=== PATIENT | female | born 1930 | race Caucasian/White ===

== ENCOUNTER 2016-12-25 04:44 | Emergency (ER) | payer MEDICARE ==
--- NOTE | ~2016-12-25 | EKG ---
PATIENT: REY BENAVIDEZ UNIT #: [id number] Ventricular Rate: 90 BPM Atrial Rate: 90 BPM P-R Interval: 174 ms QRS Duration: 78 ms Q-T Interval: 358 ms QTC Calculation(Bezet): 437 ms P [place]: 65 degrees Calculated R [place]: 17 degrees Calculated T [place]: 48 degrees Diagnosis Line: Normal sinus rhythm Diagnosis Line: Cannot rule out Septal infarct (cited on or before Diagnosis Line: 25-DEC-2016) Diagnosis Line: Borderline ECG Diagnosis Line: When compared with ECG of 04-AUG-2016 10:57, Diagnosis Line: No significant change was found Diagnosis Line: Confirmed by LAZ HDEZ MD ([id number]) on 12/26/2016 Diagnosis Line: 9:08:10 AM INTERPRETING MD: KETTY MERCADO
--- NOTE | ~2016-12-25 | CR72 ---
[facility] A Service of [facility] & [facility] RADIOLOGY TEXT RESULTS PATIENT: REY BENAVIDEZ LOCATION: SED : 32 UNIT #: [id number] AGE: [address]: Moreno Duvall DO SEX: F ORDER DR: [id number] [place] [address] [id number] E MR#: [id number] Acc #: [id number] NAME: REY BENAVIDEZ : 1930 SEX: F STUDY DATE/TIME: 12/25/2016 6:10 UNIT: SED ROOM: STUDY DESCRIPTION: CR Chest Single View Portable Attending Physician: Moreno Duvall Ordering Physician: Physician Non-Staff Primary Care Physician: Denilson Verde D.O. MEDICAL IMAGING REPORT This report is preliminary unless electronic signature is present. EXAM Portable chest one-view, 12/25/2016 at 06:10 COMPARISON 12/25/2016 at 04:01 CLINICAL HISTORY Nasogastric tube placement FINDINGS Nasogastric tube has been inserted since the prior exam. Distal tip is in at least the mid stomach. No pneumothorax. No pulmonary infiltrate. No new abnormality. Dictated by... Henrry Turner M.D. THIS IS AN ELECTRONICALLY VERIFIED REPORT Henrry Turner M.D. at 12/25/2016 12:09 PM PEREZ/víctor TD: 12/25/2016 11:38 JOB #: [id number] MEDICAL IMAGING REPORT
--- NOTE | ~2016-12-25 | CR72 ---
[facility]. [facility] A Service of [facility] & [facility] RADIOLOGY TEXT RESULTS PATIENT: REY BENAVIDEZ LOCATION: SED : 32 UNIT #: [id number] AGE: [address]: Moreno Duvall DO SEX: F ORDER DR: [id number] [place] [address] [id number] E MR#: [id number] Acc #: [id number] NAME: REY BENAVIDEZ : 1930 SEX: F STUDY DATE/TIME: 12/25/2016 4:01 UNIT: SED ROOM: STUDY DESCRIPTION: CR Chest Single View Portable Attending Physician: Moreno Duvall Ordering Physician: Physician Non-Staff Primary Care Physician: Denilson Verde D.O. MEDICAL IMAGING REPORT This report is preliminary unless electronic signature is present. EXAM Portable chest, 12/25. INDICATION Heart palpitations that started prior to arrival. History of hypertension. FINDINGS AP portable chest is compared with 08/04/2016. Cardiac and mediastinal contours are stable. There is some chronic scarring in the right base. Lungs otherwise are clear. No pneumothorax is seen. There is atherosclerotic disease in the aorta. IMPRESSION No acute findings in the chest. There is some mild chronic scarring in the right lung base. Dictated by... Denilson Enriquez Jr., M.D. THIS IS AN ELECTRONICALLY VERIFIED REPORT Denilson Enriquez Jr., M.D. at 12/25/2016 2:26 PM EVGENY/huy TD: 12/25/2016 11:23 JOB #: [id number] MEDICAL IMAGING REPORT
--- NOTE | ~2016-12-25 | CT4 ---
[facility] A Service of [facility] & [facility] RADIOLOGY TEXT RESULTS PATIENT: REY BENAVIDEZ LOCATION: SED : 32 UNIT #: [id number] AGE: [address]: Moreno Duvall DO SEX: F ORDER DR: [id number] [place] [address] [id number] E MR#: [id number] Acc #: [id number] NAME: REY BENAVIDEZ : 1930 SEX: F STUDY DATE/TIME: 12/25/2016 4:59 UNIT: SED ROOM: STUDY DESCRIPTION: CT Abd and Pelv Wo Cont Attending Physician: Moreno Duvall Ordering Physician: Physician Non-Staff Primary Care Physician: Denilson Verde D.O. MEDICAL IMAGING REPORT This report is preliminary unless electronic signature is present. EXAM CT abdomen and pelvis, 12/25. INDICATIONS Generalized abdominal pain and vomiting since yesterday. Elevated white blood cell count. TECHNIQUE Axial images were obtained through the abdomen and pelvis without contrast. Multiplanar reformats were obtained. This CT exam was performed with one or more of the following radiation dose reduction techniques: automatic exposure control, adjustment of mA and/or kV according to patient size, and iterative reconstruction. COMPARISON Comparison is made with 10/02/2016. FINDINGS ABDOMEN: Granulomatous calcification noted, right middle lobe. Lung bases otherwise clear. Intra and extrahepatic biliary ductal dilatation is stable. The common duct measures up to 2.1 cm in diameter. Once again, no obstructing lesion is seen. 5 mm nonobstructing stone noted, lower pole left kidney. This is unchanged. Renal cysts are unchanged allowing for the lack of IV contrast on the current study. No ureteral stones are identified on either side and there is no hydronephrosis. The unenhanced solid organs are otherwise within normal limits. There is atherosclerotic disease in the aorta, but there is no aneurysm. Moderate stool in the colon suggests constipation. Unopacified GI tract is otherwise normal. No bowel obstruction is seen. No free fluid. Patient is status post mesh repair of the right lower quadrant ventral abdominal wall. PELVIS: Moderate stool volume in the colon is [facility] Service of [facility] & [facility] RADIOLOGY TEXT RESULTS PATIENT: REY BENAVIDEZ LOCATION: SED : 32 UNIT #: [id number] AGE: [address]: Moreno Duvall DO SEX: F ORDER DR: andrez. Uterus is surgically absent. Urinary bladder is normal. There is no free fluid. There are mildly dilated fluid-filled distal small bowel loops suggesting an ileus or developing small bowel obstruction. No cause for obstruction is identified. IMPRESSION 1. Moderate stool volume throughout the colon compatible with constipation. 2. Dilated fluid-filled small bowel loops in the pelvis are otherwise normal in appearance. No obstructing lesion is seen, but this could reflect a developing small bowel obstruction or simply an ileus. Proximal small bowel is normal. 3. Stable intra and extrahepatic biliary ductal dilatation. 4. Stable nonobstructing stone in the right kidney. No ureteral stones are seen on either side and there is no hydronephrosis. 5. Hysterectomy and cholecystectomy. Dictated by... Denilson Enriquez Jr., M.D. THIS IS AN ELECTRONICALLY VERIFIED REPORT Denilson Enriquez Jr., M.D. at 12/25/2016 2:26 PM EVGENY/aime TD: 12/25/2016 11:28 JOB #: [id number] MEDICAL IMAGING REPORT
[2016-12-25 04:04] LABS: BASOPHIL# 0.1 X10e3 (0.0-0.3); BASOPHIL% 0.4 % (0.0-2.5); DIFF IND NO; EOSINOPHIL# 0.1 X10e3 (0.0-0.7); EOSINOPHIL% 0.7 % (0.0-7.0); HEMATOCRIT 34.3 % (35.0-45.0); HEMOGLOBIN 11.7 gm/dl (12.0-16.0); LYMPHOCYTE# 1.6 X10e3 (1.0-3.5); MEAN CELL VOLUME 93.4 FL (83-96); MEAN CORPUSCULAR HEMOGLOBIN 31.8 PG (28-34); MEAN CORPUSCULAR HGB CONC 34.1 g/dL (30-36); MEAN PLATELET VOLUME 8.5 FL (6.5-11.5); MONOCYTE# 0.9 X10e3 (0.0-1.0); MONOCYTE% 7.3 % (3.0-12.0); NEUTROPHIL% 78.6 % (40.0-75.0); PLATELET COUNT 209 X10e3 (140-420); RED BLOOD COUNT 3.67 X10e6 (3.90-5.30); RED CELL DISTRIBUTION WIDTH 13.3 % (11.0-15.5); WHITE BLOOD COUNT 12.7 X10e3 (4.0-10.5)
[2016-12-25 04:07] LABS: INR 1.5; PROTHROMBIN TIME (PATIENT) 16.8 SECONDS (9.5-12.4)
[2016-12-25 04:15] LABS: BLOOD UREA NITROGEN 14 mg/dL (9-23); CALCIUM SERUM 9.4 mg/dL (8.4-10.2); CARBON DIOXIDE 29 mmol/L (22-31); CHLORIDE 90 mmol/L (100-111); CREATININE SERUM 0.7 mg/dL (0.6-1.4); GLOM FILT RATE Estimated ABOVE60 mL/min (>60); GLUCOSE FASTING 125 mg/dL (70-110); PARTIAL THROMBOPLASTIN TIME 26.9 SECONDS (25.6-38.1); POTASSIUM 3.6 mmol/L (3.5-5.1); SODIUM 129 mmol/L (135-145)
[2016-12-25 04:34] LABS: URINE SOURCE CLEAN CATCH
[2016-12-25 04:36] LABS: URINE APPEARANCE CLEAR; URINE BILIRUBIN NEG (NEG); URINE BLOOD 1+ (NEG); URINE COLOR YELLOW; URINE GLUCOSE NEG (NORM); URINE KETONE NEG (NEG); URINE LEUKOCYTE ESTERASE NEG (NEG); URINE NITRATE NEG (NEG); URINE PH 7.5 (5-8); URINE PROTEIN NEG (NEG); URINE UROBILINOGEN 0.2 MG/DL (NORM)
[2016-12-25 04:41] LABS: MICRO INDICATED? YES
[2016-12-25 04:44] LABS: CULTURE INDICATED? NO; URINE BACTERIA NEG (NEG); URINE SQUAMOUS EPITHELIAL CELL OCCAS /[HPF]; URINE TRANSITIONAL EPI CELLS FEW /[HPF]; URINE WBC 0-2 /[HPF] (0-5)
[~2016-12-25 04:44] MED LIST: ALPRAZOLAM; ALPRAZOLAM PO; AMLODIPINE PO; AMOXICILLIN; ANTIVERT PO; ASPIRIN81 M2 PO; AUGMENTIN PO; BACTRIM DS TABL1 TA1 PO; BACTRIM DS TABL1 TA2 PO; BROMFED DM COU118 ML PO; CIPRO PO; CIPRO XR 500 M500 MG PO; CYMBALTA; DELSYM30 MG/5 ML PO; DELTASONE20 MG PO; DIFLUCAN PO; ESTRACE42.5 GM VG; FLONASE 0.05% N16 GM; FLONASE16 GM; HYDROCODON-ACE1 EAC5 PO; HYDROCODON-ACE1 EAC7 PO; HYDROCODONE; HYDROCODONE-APA1 T41 PO; IPRATROPIUM; MECLIZINE HCL25 M2 PO; MOTION RELIEF25 MG PO; MOTION SICKNESS25 M5 PO; NEXIUM; NITROSTAT0.4 MG SL; OMNICEF PO; ONDANSETRON4 MG/TAB PO; PERCOCET7.5; PHENERGAN; PHENERGAN25 M1; PHENERGAN25 M1 PR; PREDNISONE PO; PRILOSEC10 M1 PO; PROLIA60 MG/1 ML; PYRIDIUM PO; PYRIDIUM100 MG PO; SIMVASTATIN10 MG PO; SYMBICORT INH; SYMBICORT80 INH; TOPROL; TOPROL XL; TOPROL XL 50 MG50 M1 PO; TOPROL XL 50 MG50 MG PO; TOPROL XL PO; TOPROL XL50 MG PO; VICODIN PO; VITAMIN D2400 UNIT PO; XANAX0.5 M1 PO; ZOCOR; ZOFRAN ODT4 MG PO; ZOFRAN ODT4 MG/UDTAB PO
[2016-12-25 05:44] LABS: POC - CKMB 1.3 ng/mL (0.0-7.9); POC - MYOGLOBIN 47.1 ng/mL (0.0-169.0); POC - TROPONIN <0.05 ng/mL (<=0.05)
[2016-12-27 14:38] LABS: POC - CKMB 1.2 ng/mL (0.0-7.9)
[2016-12-27 14:39] LABS: POC - MYOGLOBIN 55.3 ng/mL (0.0-169.0); POC - TROPONIN <0.05 ng/mL (<=0.05)
== END 2016-12-25 09:09 ==
LOC: SED 04:44
PROVIDERS: Emergency Medicine
DX: K56.60 Unspecified intestinal obstruction (principal); R00.2 Palpitations; I10 Essential (primary) hypertension; Z90.49 Acquired absence of other specified parts of digestive tract; Z90.710 Acquired absence of both cervix and uterus
CPT/HCPCS: 36415; 71010; 74176; 80048; 81003; 82553; 83874; 84484; 85025; 85610; 85730; 93005; 96361; 96374; 96375; 99284; 99285; J1170; J2405

== ENCOUNTER 2017-03-16 21:13 | Emergency (ER) | payer MEDICARE ==
--- NOTE | ~2017-03-16 | CT4 ---
[facility] A Service of [facility] & [facility] RADIOLOGY TEXT RESULTS PATIENT: REY BENAVIDEZ LOCATION: SED : 32 UNIT #: [id number] AGE: [address]: Irineo Drake SEX: F ORDER DR: [id number] [place] [id number] E MR#: [id number] Acc #: [id number] NAME: REY BENAVIDEZ : 1930 SEX: F STUDY DATE/TIME: 03/16/2017 22:32 UNIT: SED ROOM: STUDY DESCRIPTION: CT Abd and Pelv Wo Cont Attending Physician: Irineo Drake P.A.-C. Ordering Physician: Irineo Drake P.A.-C. Primary Care Physician: Denilson Verde D.O. MEDICAL IMAGING REPORT This report is preliminary unless electronic signature is present. EXAM CT abdomen and pelvis 03/16/2017 22:32 INDICATION Patient fell while walking on uneven ground yesterday. Patient has abrasions. Abdominal and hip pain. Right lower quadrant pain. Pain rates 8/10. TECHNIQUE Axial images were obtained through the abdomen and pelvis without contrast. Multiplanar reformats were obtained. Comparison is made with 12/25/2016. This CT examination was performed with one or more of the following radiation dose reduction techniques: automatic exposure control, adjustment of mA and/or kV according to patient size, and iterative reconstruction. FINDINGS ABDOMEN: Calcified granuloma is noted in the right middle lobe. There is mild band-like scarring in both lung bases. Gallbladder surgically absent. There is persistent intra- and extrahepatic biliary ductal dilatation which appears stable. Common bile duct measures about 2 cm in diameter. Once again, no obstructing lesion is seen. The pancreatic duct is normal. Nonobstructing stone lower pole right kidney is unchanged. Right renal cyst is again seen. There are no ureteral stones, there is no hydronephrosis. Unenhanced solid organs are otherwise normal. There is also probably a tiny cyst in the lower pole of the left kidney. There is diffuse atherosclerotic disease. No free fluid or adenopathy is seen. Moderate stool volume in the colon again suggests constipation. There is no bowel obstruction. PELVIS: Patient is status post repair of the right lower quadrant abdominal wall. There is sigmoid diverticulosis, but no diverticulitis is seen. The distal small bowel is grossly normal. The urinary bladder is STS. [facility] A Service of [facility] RADIOLOGY TEXT RESULTS PATIENT: REY BENAVIDEZ LOCATION: SED : 32 UNIT #: [id number] AGE: [address]: Irineo Drake PAC SEX: F ORDER DR: normal. The uterus is surgically absent. There is no free fluid. No fractures are seen in the abdomen, pelvis, or lumbar spine. 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 IMPRESSION 1. No acute findings in the abdomen or pelvis. 2. Probable constipation. Sigmoid diverticulosis. Unopacified GI tract otherwise normal. 3. Stable intra- and extrahepatic biliary ductal dilatation. No pancreatic ductal dilatation is seen. 4. Nonobstructing stone right kidney, unchanged. No ureteral stones, and no hydronephrosis. 5. No fractures are seen in the abdomen, pelvis, or lumbar spine. 6. Hysterectomy and cholecystectomy. Dictated by... Denilson Enriquez Jr., M.D. THIS IS AN ELECTRONICALLY VERIFIED REPORT Denilson Enriquez Jr., M.D. at 03/17/2017 9:22 PM EVGENY/jameel TD: 03/17/2017 15:01 JOB #: [id number] MEDICAL IMAGING REPORT Page 1 of 1
[2017-03-16 22:25] LABS: BASOPHIL% 0.6 % (0-2.5); EOSINOPHIL# 0.2 X10e3 (0-0.7); EOSINOPHIL% 3.7 % (0.0-7.0); HEMATOCRIT 34.5 % (35.0-45.0); HEMOGLOBIN 11.4 gm/dL (12.0-16.0); LYMPHOCYTE% 35.7 % (17.0-45.0); MEAN CELL VOLUME 95.5 FL (83-96); MEAN CORPUSCULAR HEMOGLOBIN 31.5 PG (28-34); MEAN PLATELET VOLUME 9.2 FL (6.5-11.5); MONOCYTE# 0.5 X10e3 (0-1.0); PLATELET COUNT 154 X10e3 (140-420); RED BLOOD COUNT 3.61 X10e (3.90-5.30); WHITE BLOOD COUNT 5.7 X10e3 (4.0-10.5)
[2017-03-16 22:35] LABS: DIFF IND NO
[2017-03-16 22:37] LABS: ALBUMIN SERUM 4.2 g/dL (3.5-5.0); BILIRUBIN, DIRECT 0.1 mg/dL (0.0-0.2); BILIRUBIN,TOTAL 0.1 mg/dL (0.2-2.0); BUN/CREATININE RATIO 23.75; CALCIUM SERUM 9.1 mg/dL (8.4-10.2); CREATININE SERUM 0.8 mg/dL (0.6-1.4); GLOM FILT RATE Estimated 67.3 mL/min (>60); POTASSIUM 3.9 mmol/L (3.5-5.1); PROTEIN TOTAL SERUM 7.1 g/dL (6.0-8.3)
[2017-03-16 23:40] LABS: URINE SOURCE CLEAN CATCH
[2017-03-16 23:43] LABS: URINE APPEARANCE CLEAR; URINE BILIRUBIN NEG (NEG); URINE BLOOD NEG (NEG); URINE COLOR YELLOW; URINE GLUCOSE NEG (NORM); URINE KETONE NEG (NEG); URINE LEUKOCYTE ESTERASE NEG (NEG); URINE NITRATE NEG (NEG); URINE PROTEIN NEG (NEG); URINE UROBILINOGEN 0.2 MG/DL (NORM)
[2017-03-16 23:46] LABS: MICRO INDICATED? NO
[2017-07-29] MEDS ORDERED: MAGNESIUM400 M1 (05:58)
[2017-07-29] MEDS ORDERED: MIRALAX17 GM (05:59)
== END 2017-03-17 00:09 | disposition home or self-care (01) ==
LOC: SED 21:13
PROVIDERS: Physician Assistant
DX: S51.812A Laceration without foreign body of left forearm, initial encounter (principal); S70.01XA Contusion of right hip, initial encounter; S30.1XXA Contusion of abdominal wall, initial encounter; I10 Essential (primary) hypertension; F41.9 Anxiety disorder, unspecified; W01.0XXA Fall on same level from slipping, tripping and stumbling without subsequent striking against object, initial encounter; Y92.009 Unspecified place in unspecified non-institutional (private) residence as the place of occurrence of the external cause
CPT/HCPCS: 36415; 74176; 80048; 80076; 81003; 85025; 96361; 96374; 96375; 99284; J1170; J2405

== ENCOUNTER 2017-03-31 07:40 | Observation (INO) | payer MEDICARE ==
--- NOTE | ~2017-03-31 | EKG ---
PATIENT: REY BENAVIDEZ UNIT #: [id number] Ventricular Rate: 84 BPM Atrial Rate: 84 BPM P-R Interval: 160 ms QRS Duration: 82 ms Q-T Interval: 370 ms QTC Calculation(Bezet): 437 ms P [place]: 66 degrees Calculated R [place]: 38 degrees Calculated T [place]: 12 degrees Diagnosis Line: Normal sinus rhythm Diagnosis Line: Normal ECG Diagnosis Line: When compared with ECG of 25-DEC-2016 03:43, Diagnosis Line: No significant change was found Diagnosis Line: Confirmed by OFELIA VALENZUELA MD ([id number]) on Diagnosis Line: 04/02/2017 5:22:09 PM INTERPRETING : HOMAR
--- NOTE | ~2017-03-31 | EKG ---
PATIENT: REY BENAVIDEZ UNIT #: [id number] Ventricular Rate: 78 BPM Atrial Rate: 78 BPM P-R Interval: 168 ms QRS Duration: 80 ms Q-T Interval: 364 ms QTC Calculation(Bezet): 414 ms P [place]: 66 degrees Calculated R [place]: 45 degrees Calculated T [place]: 49 degrees Diagnosis Line: Normal sinus rhythm Diagnosis Line: Normal ECG Diagnosis Line: When compared with ECG of 25-DEC-2016 03:43, Diagnosis Line: Criteria for Septal infarct are no longer Present Diagnosis Line: Confirmed by OFELIA VALENZUELA MD ([id number]) on Diagnosis Line: 04/07/2017 10:26:36 PM INTERPRETING MD: HOMAR
--- NOTE | ~2017-03-31 | ST ---
Unit #: [id number] #: [id number] Patient: REY BENAVIDEZ [id number] [facility] [address] [place], [place] [address] [id number] I MR#: [id number] NAME: REY BENAVIDEZ : 1930 SEX: F STUDY DATE/TIME: UNIT: [facility] ROOM: 575 STUDY DESCRIPTION: Stress Test Attending Physician: Brenda Winkler M.D. Primary Care Physician: Denilson Verde D.O. CARDIOLOGY REPORT EXAM Lexiscan Cardiolite Stress Test DESCRIPTION Baseline EKG - normal sinus rhythm with ventricular rate 88 beats/minute, Q wave noted in V1, poor R wave progression. Nonspecific ST-T wave abnormalities in inferior leads. Lexiscan is a four minute test with Lexiscan being injected within the first minute followed by Cardiolite. EKG during the test showed 1.[address] depression in inferior lateral leads. The patient had no complaints of chest pain, palpitations or dizziness. She did have some nausea and dry heaving in post recovery which resolved within a couple minutes. Her maximum heart rate response was 141 beats/minute with a maximum blood pressure response of 138/58 mmHg. The patient had no complaints of chest pain, palpitations or dizziness. As mentioned, did complain of nausea and had some dry heaving. Cardiolite was injected after Lexiscan within the first minute of the test. Radionuclide test pending. Please correlate with nuclear images. Dictated by... Demarco Jerry/lyndsey TD: 04/01/2017 13:01 JOB #: [id number] Unit #: [id number] #: [id number] Patient: REY BENAVIDEZ CARDIOLOGY REPORT Page 1 of 1 X Ava Sutherland APRN CARDIOLOGY REPORT
--- NOTE | ~2017-03-31 | CR72 ---
[facility] A Service of [facility] RADIOLOGY TEXT RESULTS PATIENT: REY BENAVIDEZ LOCATION: [facility] [address] : 32 UNIT #: [id number] AGE: [address]: Brenda Winkler MD SEX: F ORDER DR: [id number] [address] [address] [id number] E MR#: [id number] Acc #: [id number] NAME: REY BENAVIDEZ : 1930 SEX: F STUDY DATE/TIME: 03/31/2017 7:55 UNIT: SED ROOM: STUDY DESCRIPTION: CR Chest Single View Portable Attending Physician: Gerri Mathis M.D. Ordering Physician: Gerri Mathis M.D. Primary Care Physician: Denilson Verde D.O. MEDICAL IMAGING REPORT This report is preliminary unless electronic signature is present. EXAM Portable AP view of the chest COMPARISON December 25, 2016 and August 04, 2016. INDICATION 87-year-old female with dyspnea and chest pain since last night. History of hypertension and asthma. FINDINGS There are prominent breast shadows over both lung bases. There appear to be increased band-like opacities in the right lung base and there is also a calcified granuloma in the right lung base. Small left pleural effusion. Associated atelectasis or pneumonia cannot entirely be excluded. No evidence of pneumothorax. Normal heart size. Calcification of the aortic arch. IMPRESSION 1. Increased band-like opacities in the right lung base would seem to favor atelectasis. Correlation to exclude signs of pneumonia recommended. 2. Similar appearing hazy attenuation over left lower chest favored to be due to prominent cardiac and breast shadows but left basilar atelectasis, pneumonia and/or pleural effusion cannot entirely be excluded. 3. Normal heart size. 1. Dictated by... Justin Gillette M.D. THIS IS AN ELECTRONICALLY VERIFIED REPORT [facility] A Service of [facility] & [facility] RADIOLOGY TEXT RESULTS PATIENT: REY BENAVIDEZ LOCATION: [facility] 575 : 32 UNIT #: [id number] AGE: [address]: Brenda Winkler MD SEX: F ORDER DR: Justin Gillette M.D. at 04/07/2017 7:34 PM CECILIA/víctor TD: 03/31/2017 09:28 JOB #: [id number] MEDICAL IMAGING REPORT Page 1 of 1
--- NOTE | ~2017-03-31 | TH ---
Unit #: [id number] #: [id number] Patient: REY BENAVIDEZ [id number] [facility]. [address] [address] [id number] I MR#: [id number] NAME: REY BENAVIDEZ : 1930 SEX: F STUDY DATE/TIME: UNIT: [facility] ROOM: 575 STUDY DESCRIPTION: Nuclear Study Attending Physician: Brenda Winkler M.D. Primary Care Physician: Denilson Verde D.O. CARDIOLOGY REPORT EXAM Lexiscan Cardiolite Stress Test - Nuclear Portion PROCEDURE Using technetium 99m labeled Cardiolite, rest and stress SPECT images were obtained. Multiple SPECT images were obtained in various views including horizontal and vertical long axis and short axis views of the left ventricle. Images were obtained by gated SPECT method. The patient was administered 11.50 mCi of Cardiolite at rest. The patient was administered 35.9 mCi of Cardiolite after Lexiscan infusion was completed. On the stress images, there is normal perfusion noted. The rest images show normal perfusion. Comparing rest and stress images, there is no stress-induced ischemia noted. The left ventricular ejection fraction is calculated to be 87%. There is no focal wall motion abnormality seen. CONCLUSION 1. No stress-induced ischemia noted. 2. The left ventricular ejection fraction is calculated to be 87%. 3. There is no focal wall motion abnormality seen. 4. The left ventricular size is extremely small. 5. Normal nuclear portion of the stress test. 6. It must be noted that the patient had some ST depression during the Lexiscan portion of the stress test. Clinical correlation is requested. Dictated by... Selvin Parker TD: 04/01/2017 14:14 JOB #: [id number] Unit #: [id number] #: [id number] Patient: REY BENAVIDEZ CARDIOLOGY REPORT Page 1 of 1 X Brenda Winkler MD <ELECTRONICALLY SIGNED> 05/25/17 1429 CARDIOLOGY REPORT
--- NOTE | ~2017-03-31 | HP ---
Unit #: [id number] #: [id number] Patient: REY DAILEY [id number] [facility]. [place] [id number] [facility]. [place], [place] [address] [id number] I MR#: [id number] NAME: REY DAILEY ROOM: 575 Age: 87 Sex: F Admission Date: 03/31/2017 : 1930 Attending Physician: Brenda Winkler M.D. Primary Care Physician: Denilson Verde D.O. HISTORY AND PHYSICAL HISTORY OF PRESENT ILLNESS This is an 87-year-old white female who is active with Dr. Rodgers at [facility]. The patient reports that she has a history of mitral valve prolapse and sees him for blood pressure management. She reports that she had a stress test a couple of years ago that she thought was normal. She was also told that she has mitral valve prolapse. The patient had been at [facility] for about a month ago. She was there for some type of MRSA infection. Details are unavailable. She was not sure that it was not of the wound. She went to rehab after being at [facility] for two weeks. She has been out of rehab for about a month. She said since she has been home she has been doing fairly well. She can ambulate without a walker or cane. She started having yesterday some weakness and some midsternal chest discomfort radiating over to the left area. She says that it was constant for a few hours. She denies any dizziness or diaphoresis. She did feel a little short of breath. No palpitations. No radiation up to the neck, bilateral jaws, shoulders, arms or elbows. She did complain of some left shoulder pressure when she had the pain in her midsternal left anterior chest wall. The patient checks her blood pressure frequently at home. She said that her heart rate got up to 140. She was concerned that something was going on so she came to the emergency room for further evaluation and management. The patient denies any recent cough, fever or chills. In the emergency room the patient's blood pressure was 157/70, heart rate 68, respiratory rate 18, she was afebrile. O2 saturation was 96% on room air. Her EKG showed normal sinus rhythm, nothing acute. Some T wave inversion in lead 3. Initial cardiac enzymes are negative. Chest x-ray showed an increased band of opacities in the right lung. Questionable atelectasis. Also the left lower lobe had some atelectasis. The patient was given aspirin in addition to being started on nitroglycerin paste and IV Protonix. The patient did mention also that she had taken some Nitrostat at home without any relief. The patient will be admitted for further evaluation and workup. PAST MEDICAL HISTORY 1. Hypertension. 2. Hyperlipidemia. 3. Gastroesophageal reflux disease. 4. Chronic obstructive pulmonary disease. 5. Reformed smoker. Quit over 40 years ago. 6. Cardiac catheterization years ago according to the patient was told was normal. Details unavailable. 7. In 2003 had exercise Cardiolite stress test with no ischemia. Ejection fraction 72%. Unit #: [id number] #: [id number] Patient: REY DAILEY 8. Followup with Dr. Rodgers for reported mitral valve prolapse and blood pressure control. 9. Recent hospitalization at [facility] for MRSA infection. Questionable source. Went to rehab and discharged from rehab about a month ago. 10. Stress test about three years ago. According to the patient she was told it was normal. PAST SURGICAL HISTORY 1. Cholecystectomy. 2. Hysterectomy. 3. Upper GI. SOCIAL HISTORY The patient lives at home with her . Her is currently in the hospital here at [facility]. She used to smoke, but quit over 40 years ago. No alcohol or illicit drug abuse. FAMILY HISTORY Both of her parents had congestive heart failure, but other than that no coronary artery disease in the immediate family members. ALLERGIES Morphine, codeine, oxycodone, tetracycline, Stadol. HOME MEDICATIONS 1. Toprol XL 50 mg p.o. daily. Will confirm that with her pharmacy. 2. Xanax 0.5 mg p.o. daily p.r.n. 3. Symbicort 2 puffs inhalation b.i.d. p.r.n. 4. Ipratropium as directed. 5. Meclizine 25 mg p.o. p.r.n. 6. Nitrostat 0.4 mg sublingual p.r.n. times 3. 7. Vicodin/Lortab dosage unavailable. One tablet p.o. q.4 h. p.r.n. 8. Simvastatin 10 mg p.o. at nighttime daily. 9. Diltiazem 5 ml p.o. q.12 h. p.r.n. 10. Aspirin 81 mg p.o. daily. 11. Colace 100 mg p.o. b.i.d. p.r.n. 12. Milk of Magnesia 10 ml p.o. daily. 13. Amlodipine dosage and frequency unavailable, 1 tablet daily. 14. Flonase 1 puff each nostril daily. 15. Remeron 30 mg p.o. at bedtime. 16. Patanol 1 drop each eye b.i.d. 17. Zofran 4 mg p.o. t.i.d. p.r.n. 18. Protonix 40 mg p.o. daily. REVIEW OF SYSTEMS CONSTITUTIONAL: Denies fever or chills. No recent weight gain or weight loss. HEENT: Denies headache. Denies dizziness. No visual or hearing changes. No lymphadenopathy or thyromegaly. No difficulty swallowing. CARDIOVASCULAR: Complains of chest pain. Denies palpitations. Denies increased lower extremity edema. PULMONARY: Increased shortness of breath with the chest discomfort. Denies cough. Denies fever. GI: Denies nausea, vomiting, diarrhea or abdominal pain. NEUROLOGICAL: No focal weakness. Very hard of hearing. PHYSICAL EXAMINATION Unit #: [id number] #: [id number] Patient: REY DAILEY GENERAL: Ms. Dailey is an 87-year-old white female in no acute respiratory distress. She is awake, alert and oriented. VITALS: Currently blood pressure is 136/64, respiratory rate 18, heart rate 95, temperature 97.8, O2 saturations 99% on 2 liters. NECK: Trachea midline. No lymphadenopathy. Thyromegaly. No difficulty swallowing. LUNGS: Diminished in the bases. HEART: S1 and S2. Regular rate and rhythm. Soft systolic murmur left sternal border. ABDOMEN: Obese, soft, nontender. Positive bowel sounds present. EXTREMITIES: Pedal pulses are palpable. Trace pedal edema. DIAGNOSTIC STUDIES IMAGING: Chest x-ray shows increased band-like opacities in the right lung base, which seems to favor atelectasis. Cannot exclude maybe pneumonia. Similar attenuation over the left lower chest, but could consider left basilar atelectasis. LABORATORY: Glucose 106, BUN 16, creatinine 0.8. EGFR 67.3. Sodium 134, potassium 3.8, chloride 100, CO2 26, calcium 9.1, magnesium 2.3, total protein 7.3, albumin 4.3, bilirubin total 0.2, AST 36, ALT 13, alkaline phosphatase 92. BNP 126. TSH 1.14. White blood cell count 6.4, hemoglobin 11.0, hematocrit 32.9, platelets 168. Initial cardiac enzymes, CK-MB less than 1.0, troponin less than 0.05; CK-MB less than 1.0, troponin less than 0.05. Urinalysis unremarkable. No cultures are pending. INR 1.4. D-dimer less than 200. CARDIOVASCULAR: EKG normal sinus rhythm with ventricular rate 84 beats per minute, T wave noted in V1, poor R wave progression, left ventricular hypertrophy, T wave inversion in lead 3 also Q waves noted in lead 3. ASSESSMENT 1. Chest pain. Etiology. Reports had a normal cath years ago. Details unavailable. Stress test 2-3 years ago was told normal according to the patient. 2. Hypertension. 3. Hyperlipidemia. 4. Gastroesophageal reflux disease. 5. Reformed smoker. 6. Chronic obstructive pulmonary disease. 7. Recent hospitalization for MRSA infection. Questionable source. PLAN 1. We admitted the patient to evaluate her chest pain. Cardiac enzymes are negative so far. EKG does not show anything acute. If the cardiac enzymes remain negative, will proceed with a Lexiscan Cardiolite stress test to further evaluate for ischemic heart disease. In the meantime, will try to obtain records from Dr. Rodgers at [facility] and also her latest H and P and discharge summary. Also try to find two-dimensional echo. 2. On exam there are no signs or symptoms of acute congestive heart failure. Obtain fasting lipid profile and TSH and evaluate. 3. Continue the patient on her beta july, statin, aspirin and her amlodipine for blood pressure. 4. The patient's heart rate and blood pressure are stable. 5. Further recommendations pending per Dr. Winkler. Unit #: [id number] #: [id number] Patient: REY DAILEY Dictated by Ava E. Sutherland, A.P.R.Chelsea Winkler M.D. CEC/gz TD: 04/01/2017 12:33 JOB #: [id number] CC: Denilson Verde D.O. [facility] HISTORY AND PHYSICAL Page 1 of 1 X Ava Sutherland APRN X HISTORY AND PHYSICAL
[2017-03-31 08:10] LABS: BASOPHIL% 0.6 % (0-2.5); EOSINOPHIL# 0.1 X10e3 (0-0.7); EOSINOPHIL% 1.7 % (0.0-7.0); HEMATOCRIT 32.9 % (35.0-45.0); LYMPHOCYTE# 2.5 X10e3 (1.0-3.5); LYMPHOCYTE% 39.2 % (17.0-45.0); MEAN CELL VOLUME 94.5 FL (83-96); MEAN CORPUSCULAR HEMOGLOBIN 31.5 PG (28-34); MEAN CORPUSCULAR HGB CONC 33.3 g/dL (30-36); MEAN PLATELET VOLUME 9.1 FL (6.5-11.5); MONOCYTE# 0.5 X10e3 (0-1.0); MONOCYTE% 7.3 % (3.0-12.0); NEUTROPHIL# 3.3 X10e3 (1.5-7.1); NEUTROPHIL% 51.2 % (40-75); PLATELET COUNT 168 X10e3 (140-420); RED BLOOD COUNT 3.48 X10e (3.90-5.30); WHITE BLOOD COUNT 6.4 X10e3 (4.0-10.5)
[2017-03-31 08:16] LABS: POC - CKMB <1.0 ng/mL (0.0-7.9); POC - TROPONIN <0.05 ng/mL (<=0.05)
[2017-03-31] MEDS ORDERED: DOCUSATE SODIU100 MG PO (08:17)
[2017-03-31] MEDS ORDERED: ASPIRIN81 MG PO (08:17)
[2017-03-31] MEDS ORDERED: MILK OF MA2400 MG/10 PO (08:18)
[2017-03-31 08:20] LABS: DIFF IND NO
[2017-03-31] MEDS ORDERED: AMLODIPINE BESYL5 MG (08:24)
[2017-03-31] MEDS ORDERED: FLONASE 0.05% N16 G1 (08:24)
[2017-03-31 08:25] LABS: INR 1.4
[2017-03-31] MEDS ORDERED: REMERON PO (08:25)
[2017-03-31] MEDS ORDERED: PATANOL5 ML OU (08:27)
[2017-03-31] MEDS ORDERED: ZOFRANODT PO (08:27)
[2017-03-31] MEDS ORDERED: PROTONIX PO (08:27)
[2017-03-31 08:32] LABS: PARTIAL THROMBOPLASTIN TIME 26.9 SECONDS (25.6-38.1)
[2017-03-31 08:39] LABS: DDIMER <200 NG/ML (0-200)
[2017-03-31 08:40] LABS: URINE SOURCE CLEAN CATCH
[2017-03-31 08:42] LABS: URINE APPEARANCE CLEAR; URINE BILIRUBIN NEG (NEG); URINE BLOOD TRACE-LYSED (NEG); URINE COLOR YELLOW; URINE GLUCOSE NEG (NORM); URINE KETONE NEG (NEG); URINE LEUKOCYTE ESTERASE NEG (NEG); URINE NITRATE NEG (NEG); URINE PROTEIN NEG (NEG); URINE SPECIFIC GRAVITY <=1.005 (1.003-1.035); URINE UROBILINOGEN 0.2 MG/DL (NORM)
[2017-03-31 08:53] LABS: MICRO INDICATED? YES
[2017-03-31 08:55] LABS: ALBUMIN SERUM 4.3 g/dL (3.5-5.0); BILIRUBIN, DIRECT 0.1 mg/dL (0.0-0.2); BILIRUBIN,INDIRECT 0.1 mg/dL (0.0-0.9); BILIRUBIN,TOTAL 0.2 mg/dL (0.2-2.0); CALCIUM SERUM 9.1 mg/dL (8.4-10.2); CREATININE SERUM 0.8 mg/dL (0.6-1.4); GLOM FILT RATE Estimated 67.3 mL/min (>60); POTASSIUM 3.8 mmol/L (3.5-5.1); PROTEIN TOTAL SERUM 7.3 g/dL (6.0-8.3)
[2017-03-31 09:02] LABS: MAGNESIUM 2.3 mg/dL (1.6-3.0)
[2017-03-31 09:09] LABS: CULTURE INDICATED? NO; URINE BACTERIA NEG (NEG); URINE RBC 0-2 /[HPF] (0-2); URINE WBC 0-2 /[HPF] (0-5)
[2017-03-31 09:50] LABS: POC - CKMB <1.0 ng/mL (0.0-7.9); POC - TROPONIN <0.05 ng/mL (<=0.05)
[2017-03-31] MEDS ORDERED: IPRAT-ALBUT 0.5-3 ML PO (20:43)
[2017-03-31] MEDS ORDERED: XANAX0.5 MG PO (20:50)
[2017-03-31] MEDS ORDERED: AMLODIPINE BESYL5 MG PO (20:50)
[2017-03-31] MEDS ORDERED: MECLIZINE HCL25 M2 PO (20:52)
[2017-03-31 21:02] LABS: %MB 2.2 % (0.0-4.0); MB 1.7 ng/ml
[2017-04-01 02:46] LABS: %MB 2.4 % (0.0-4.0); MB 1.6 ng/ml
[2017-04-01 10:25] LABS: CHOLESTEROL 157 mg/dL (0-200); HDL CHOLESTEROL 85 mg/dL (35-95); LDL CHOLESTEROL 63 mg/dL (-130); LDL/HDL RATIO 1 RATIO (0-4); TRIGLYCERIDES 44 mg/dL (10-160)
[2017-07-29] MEDS ORDERED: MAGNESIUM400 M1 (05:58)
[2017-07-29] MEDS ORDERED: MIRALAX17 GM (05:59)
== END 2017-04-01 16:38 | disposition home or self-care (01) ==
LOC: SED 07:40 → CEDOF 10:23 → C5C 17:41 → CEDOF 18:45 → C5C 18:45
PROVIDERS: Internal Medicine Cardiovascular Disease; Nurse Practitioner; Student in an Organized Health Care Education/Training Program
DX: R07.89 Other chest pain (principal); I10 Essential (primary) hypertension; E78.5 Hyperlipidemia, unspecified; K21.9 Gastro-esophageal reflux disease without esophagitis; J44.9 Chronic obstructive pulmonary disease, unspecified; Z87.891 Personal history of nicotine dependence; Z86.14 Personal history of Methicillin resistant Staphylococcus aureus infection; F41.9 Anxiety disorder, unspecified; Z88.1 Allergy status to other antibiotic agents; Z88.5 Allergy status to narcotic agent; Z90.710 Acquired absence of both cervix and uterus; Z90.49 Acquired absence of other specified parts of digestive tract
CPT/HCPCS: 36415; 71010; 78452; 80048; 80061; 80076; 81003; 82550; 82553; 83735; 83880; 84443; 84484; 85025; 85379; 85610; 85730; 93005; 93017; 96372; 96374; 96375; 99285; A9500; C9113; G0378; J2405; J2785; J3010

== ENCOUNTER 2017-05-02 13:19 | Emergency (ER) | payer MEDICARE, OTHER ==
--- NOTE | ~2017-05-02 | CR7 ---
[facility]. [facility] A Service of [facility] & [facility] RADIOLOGY TEXT RESULTS PATIENT: REY BENAVIDEZ LOCATION: SED : 32 UNIT #: [id number] AGE: [address]: Jose Hernandez MD SEX: F ORDER DR: [id number] [place] [id number] E MR#: [id number] Acc #: [id number] NAME: REY BENAVIDEZ : 1930 SEX: F STUDY DATE/TIME: 05/02/2017 14:46 UNIT: SED ROOM: STUDY DESCRIPTION: CR Abdomen Single AP View Attending Physician: Jose Hernandez M.D. Ordering Physician: Jose Hernandez M.D. Primary Care Physician: Denilson Verde D.O. MEDICAL IMAGING REPORT This report is preliminary unless electronic signature is present. EXAM Abdomen, 05/02/2017. INDICATIONS Right lower quadrant pain started this morning. FINDINGS Supine view of the abdomen is compared with CT abdomen and pelvis from 03/16/2017. No bowel obstruction is seen. Moderate stool volume in the right hemicolon. There is a nonobstructing stone in the right kidney as seen on CT. There is right lower quadrant abdominal wall mesh. IMPRESSION No bowel obstruction is seen. Moderate stool in the right hemicolon. There is a nonobstructing right renal stone. Dictated by... Denlison Enriquez Jr., M.D. THIS IS AN ELECTRONICALLY VERIFIED REPORT Denilson Enriquez Jr., M.D. at 05/03/2017 7:19 AM EVGENY/ana maría TD: 05/02/2017 20:32 JOB #: [id number] MEDICAL IMAGING REPORT Page 1 of 1
[~2017-05-02 13:19] MED LIST changes: +AMLODIPINE BESYL5 MG; +AMLODIPINE BESYL5 MG PO; +ASPIRIN81 MG PO; +DOCUSATE SODIU100 MG PO; +FLONASE 0.05% N16 G1; +IPRAT-ALBUT 0.5-3 ML PO; +MILK OF MA2400 MG/10 PO; +PATANOL5 ML OU; +PROTONIX PO; +REMERON PO; +XANAX0.5 MG PO; +ZOFRANODT PO
[2017-07-29] MEDS ORDERED: MAGNESIUM400 M1 (05:58)
[2017-07-29] MEDS ORDERED: MIRALAX17 GM (05:59)
== END 2017-05-02 16:08 | disposition home or self-care (01) ==
LOC: SED 13:19
DX: K59.00 Constipation, unspecified (principal); Z88.5 Allergy status to narcotic agent
CPT/HCPCS: 74000; 96372; 99284; J1170

== ENCOUNTER 2017-05-22 16:00 | Emergency (ER) | payer MEDICARE ==
[~2017-05-22] VITALS: Ht 165.1 cm; Wt 54.4 kg
--- NOTE | ~2017-05-22 | CT4 ---
[facility]. [facility] A Service [facility] RADIOLOGY TEXT RESULTS PATIENT: REY BENAVIDEZ LOCATION: SED : 32 UNIT #: [id number] AGE: [address]: Juan C Heaton MD SEX: F ORDER DR: [id number] [address] [address] [id number] E MR#: [id number] Acc #: [id number] NAME: REY BENAVIDEZ : 1930 SEX: F STUDY DATE/TIME: 05/22/2017 17:24 UNIT: SED ROOM: STUDY DESCRIPTION: CT Abd and Pelv Wo Cont Attending Physician: Juan C Heaton M.D. Ordering Physician: Juan C Heaton M.D. Primary Care Physician: Denilson Verde D.O. MEDICAL IMAGING REPORT This report is preliminary unless electronic signature is present. EXAM CT abdomen and pelvis without contrast 05/22/2017 HISTORY 87-year-old female with right-sided abdominal pain and constipation for [address] abdomen and pelvis 03/16/2017 TECHNIQUE Helical scan performed through the abdomen and pelvis without IV contrast. Coronal and sagittal reformatted images. This CT exam was performed with one or more of the following radiation dose reduction techniques: automatic control, adjustment of mA and/or kV according to patient size, and iterative reconstruction. FINDINGS Visualized lung bases are unremarkable. There is a stable prominent intra and extrahepatic biliary ductal dilatation, unchanged from prior exam. No obstructing bile duct stones. No pancreatic duct dilatation. Liver is otherwise unremarkable. The spleen, pancreas, both adrenal glands are unremarkable. Gallbladder surgically absent. Stable right renal cyst and nonobstructing right intrarenal calculus. Left kidney is grossly unremarkable. Abdominal aorta normal in course and caliber with scattered atherosclerotic calcification. Small bowel is unremarkable without obstruction. Appendix not clearly seen. No pericecal inflammation. Moderate stool burden. Uncomplicated sigmoid colonic diverticulosis. No free fluid or free air. Urinary bladder is unremarkable. Uterus surgically absent. No free pelvic fluid. No acute bony abnormality. [facility] A Service of [facility] RADIOLOGY TEXT RESULTS PATIENT: REY BENAVIDEZ LOCATION: [facility] : 32 UNIT #: [id number] AGE: [address]: Juan C Heaton MD SEX: F ORDER DR: IMPRESSION 1. No acute abdominal or pelvic findings. 2. Moderate stool burden with uncomplicated sigmoid colonic diverticulosis. Appendix not clearly visualized. No pericecal inflammation. 3. Stable prominent intra and extrahepatic biliary ductal dilatation. No obstructing stones or pancreatic ductal dilatation. Patient is status post cholecystectomy. 4. Stable nonobstructing right intrarenal stone. 5. Hysterectomy Dictated by... Zain Alba M.D. THIS IS AN ELECTRONICALLY VERIFIED REPORT Zain Alba M.D. at 05/23/2017 3:54 PM CODIE/barb TD: 05/23/2017 03:33 JOB #: [id number] MEDICAL IMAGING REPORT Page 1 of 1
[2017-05-22 17:44] LABS: BASOPHIL# 0.1 X10e3 (0-0.3); BASOPHIL% 0.5 % (0-2.5); EOSINOPHIL# 0.2 X10e3 (0-0.7); EOSINOPHIL% 1.3 % (0.0-7.0); HEMATOCRIT 36.3 % (35.0-45.0); LYMPHOCYTE# 2.7 X10e3 (1.0-3.5); LYMPHOCYTE% 24.5 % (17.0-45.0); MEAN CELL VOLUME 94.8 FL (83-96); MEAN CORPUSCULAR HEMOGLOBIN 31.3 PG (28-34); MEAN PLATELET VOLUME 9.1 FL (6.5-11.5); MONOCYTE# 0.7 X10e3 (0-1.0); MONOCYTE% 6.5 % (3.0-12.0); NEUTROPHIL# 7.6 X10e3 (1.5-7.1); NEUTROPHIL% 67.2 % (40-75); PLATELET COUNT 182 X10e3 (140-420); RED BLOOD COUNT 3.83 X10e (3.90-5.30); RED CELL DISTRIBUTION WIDTH 13.9 % (11.0-15.5); WHITE BLOOD COUNT 11.2 X10e3 (4.0-10.5)
[2017-05-22 17:45] LABS: DIFF IND NO
[2017-05-22 18:04] LABS: URINE SOURCE CLEAN CATCH
[2017-05-22 18:11] LABS: URINE APPEARANCE CLEAR; URINE BILIRUBIN NEG (NEG); URINE BLOOD TRACE-INTACT (NEG); URINE COLOR YELLOW; URINE GLUCOSE NEG (NORM); URINE KETONE NEG (NEG); URINE LEUKOCYTE ESTERASE NEG (NEG); URINE NITRATE NEG (NEG); URINE PROTEIN NEG (NEG); URINE SPECIFIC GRAVITY <=1.005 (1.003-1.035); URINE UROBILINOGEN 0.2 MG/DL (NORM)
[2017-05-22 18:18] LABS: MICRO INDICATED? YES
[2017-05-22 18:29] LABS: CULTURE INDICATED? NO; URINE BACTERIA NEG (NEG); URINE RBC 0-2 /[HPF] (0-2); URINE WBC 0-2 /[HPF] (0-5)
[2017-05-22 18:39] LABS: ALBUMIN SERUM 4.5 g/dL (3.5-5.0); BILIRUBIN, DIRECT 0.2 mg/dL (0.0-0.2); BILIRUBIN,INDIRECT 0.3 mg/dL (0.0-0.9); BILIRUBIN,TOTAL 0.5 mg/dL (0.2-2.0); BUN/CREATININE RATIO 18.57; CALCIUM SERUM 9.6 mg/dL (8.4-10.2); CREATININE SERUM 0.7 mg/dL (0.6-1.4); POTASSIUM 4.2 mmol/L (3.5-5.1); PROTEIN TOTAL SERUM 7.8 g/dL (6.0-8.3)
[2017-07-29] MEDS ORDERED: MAGNESIUM400 M1 (05:58)
[2017-07-29] MEDS ORDERED: MIRALAX17 GM (05:59)
== END 2017-05-22 18:57 | disposition home or self-care (01) ==
LOC: SED 16:00
PROVIDERS: Emergency Medicine
DX: K59.00 Constipation, unspecified (principal); I10 Essential (primary) hypertension; J44.9 Chronic obstructive pulmonary disease, unspecified; Z90.49 Acquired absence of other specified parts of digestive tract; Z90.710 Acquired absence of both cervix and uterus; Z88.5 Allergy status to narcotic agent; Z88.1 Allergy status to other antibiotic agents; Z79.899 Other long term (current) drug therapy
CPT/HCPCS: 36415; 74176; 80048; 80076; 81003; 82150; 83690; 85025; 96372; 99284; J0500

== ENCOUNTER 2017-06-16 17:49 | Emergency (ER) | payer MEDICARE ==
[~2017-06-16] VITALS: Ht 165.1 cm; Wt 54.4 kg
--- NOTE | ~2017-06-16 | CR132 ---
[facility]. [facility] A Service of [facility] & [facility] RADIOLOGY TEXT RESULTS PATIENT: REY BENAVIDEZ LOCATION: SED : 32 UNIT #: [id number] AGE: [address]: Gerri Mathis MD SEX: F ORDER DR: [id number] [place] [id number] E MR#: [id number] Acc #: [id number] NAME: REY BENAVIDEZ : 1930 SEX: F STUDY DATE/TIME: 06/16/2017 18:14 UNIT: SED ROOM: STUDY DESCRIPTION: CR Forearm 2 View Lt Attending Physician: Gerri Mathis M.D. Ordering Physician: Gerri Mathis M.D. Primary Care Physician: Denilson Verde D.O. MEDICAL IMAGING REPORT This report is preliminary unless electronic signature is present. EXAM Left forearm INDICATION Fall and pain. Fall off a step in the driveway. FINDINGS Two views of the left forearm without comparison. There is a distal radius fracture. There is no acute fracture of the proximal forearm. Articulation at the elbow is anatomic. IMPRESSION Distal radius and ulna fracture. Please refer to the wrist radiograph for details. Dictated by... Deondre Izquierdo M.D. THIS IS AN ELECTRONICALLY VERIFIED REPORT Deondre Izquierdo M.D. at 06/18/2017 10:31 AM ALEX[place]RI[place]/jameel TD: 06/17/2017 08:05 JOB #: [id number] MEDICAL IMAGING REPORT Page 1 of 1
--- NOTE | ~2017-06-16 | CR281 ---
[facility]. [facility] A Service of [facility] & [facility] RADIOLOGY TEXT RESULTS PATIENT: REY BENAVIDEZ LOCATION: SED : 32 UNIT #: [id number] AGE: [address]: Gerri Mathis MD SEX: F ORDER DR: [id number] [place] [id number] E MR#: [id number] Acc #: [id number] NAME: REY BENAVIDEZ : 1930 SEX: F STUDY DATE/TIME: 06/16/2017 18:14 UNIT: SED ROOM: STUDY DESCRIPTION: CR Wrist Min 3 View Lt Attending Physician: Gerri Mathis M.D. Ordering Physician: Gerri Mathis M.D. Primary Care Physician: Denilson Verde D.O. MEDICAL IMAGING REPORT This report is preliminary unless electronic signature is present. EXAM Left wrist INDICATION Left wrist pain status post fall. Fell off a driveway. FINDINGS Three views of the left wrist without comparison. There is a comminuted and intraarticular fracture of the distal radius. There is no displacement. Articulation of the proximal carpal row is anatomic. Nondisplaced ulnar styloid fracture. IMPRESSION 1. Comminuted intraarticular and nondisplaced fracture of the distal left radius. 2. Nondisplaced ulnar styloid fracture. Dictated by... Deondre Izquierdo M.D. THIS IS AN ELECTRONICALLY VERIFIED REPORT Deondre Izquierdo M.D. at 06/18/2017 10:31 AM [place]/jameel TD: 06/17/2017 09:11 JOB #: [id number] MEDICAL IMAGING REPORT Page 1 of 1
--- NOTE | ~2017-06-16 | CR93 ---
[facility]. [facility] A Service of [facility] & [facility] RADIOLOGY TEXT RESULTS PATIENT: REY BENAVIDEZ LOCATION: SED : 32 UNIT #: [id number] AGE: [address]: Gerri Mathis MD SEX: F ORDER DR: [id number] [place] [id number] E MR#: [id number] Acc #: [id number] NAME: REY BENAVIDEZ : 1930 SEX: F STUDY DATE/TIME: 06/16/2017 18:14 UNIT: SED ROOM: STUDY DESCRIPTION: CR Elbow Min 3 Views Lt Attending Physician: Gerri Mathis M.D. Ordering Physician: Gerri Mathis M.D. Primary Care Physician: Denilson Verde D.O. MEDICAL IMAGING REPORT This report is preliminary unless electronic signature is present. EXAM Left elbow INDICATION Left elbow pain status post fall. Fall off the driveway. FINDINGS Three views of the left elbow without comparison. There is no acute fracture, dislocation or effusion. IMPRESSION Negative left elbow. Dictated by... Deondre Izquierdo M.D. THIS IS AN ELECTRONICALLY VERIFIED REPORT Deondre Izquierdo M.D. at 06/18/2017 10:31 AM [place]/jameel TD: 06/17/2017 08:07 JOB #: [id number] MEDICAL IMAGING REPORT Page 1 of 1
[2017-07-29] MEDS ORDERED: MAGNESIUM400 M1 (05:58)
[2017-07-29] MEDS ORDERED: MIRALAX17 GM (05:59)
== END 2017-06-16 19:13 | disposition home or self-care (01) ==
LOC: SED 17:49
DX: S52.572A Other intraarticular fracture of lower end of left radius, initial encounter for closed fracture (principal); I10 Essential (primary) hypertension; Z88.5 Allergy status to narcotic agent; Z79.899 Other long term (current) drug therapy; Z79.82 Long term (current) use of aspirin; W01.0XXA Fall on same level from slipping, tripping and stumbling without subsequent striking against object, initial encounter
CPT/HCPCS: 29125; 73080; 73090; 73110; 99283

== ENCOUNTER 2017-07-03 19:11 | Emergency (ER) | payer MEDICARE ==
[2017-07-29] MEDS ORDERED: MAGNESIUM400 M1 (05:58)
[2017-07-29] MEDS ORDERED: MIRALAX17 GM (05:59)
== END 2017-07-03 21:15 | disposition home or self-care (01) ==
LOC: CED 19:11
DX: Z53.21 Procedure and treatment not carried out due to patient leaving prior to being seen by health care provider (principal)

== ENCOUNTER 2017-07-06 15:56 | Emergency (ER) | payer MEDICARE ==
[~2017-07-06] VITALS: Ht 172.7 cm; Wt 56.7 kg
[2017-07-06 16:25] LABS: URINE SOURCE CLEAN CATCH
[2017-07-06 16:27] LABS: URINE APPEARANCE CLEAR; URINE BILIRUBIN NEG (NEG); URINE BLOOD TRACE-LYSED (NEG); URINE COLOR YELLOW; URINE GLUCOSE NEG (NORM); URINE KETONE NEG (NEG); URINE LEUKOCYTE ESTERASE NEG (NEG); URINE NITRATE NEG (NEG); URINE PROTEIN NEG (NEG); URINE UROBILINOGEN 0.2 MG/DL (NORM)
[2017-07-06 16:30] LABS: MICRO INDICATED? YES
[2017-07-06 16:34] LABS: CULTURE INDICATED? NO; URINE BACTERIA NEG (NEG); URINE SQUAMOUS EPITHELIAL CELL MODERATE /[HPF]; URINE WBC NEG /[HPF] (0-5)
[2017-07-06 16:35] LABS: URINE HYALINE CAST 0-2 /[HPF]; URINE MUCUS PRESENT
[2017-07-06 17:03] LABS: BASOPHIL% 0.6 % (0-2.5); EOSINOPHIL# 0.1 X10e3 (0-0.7); EOSINOPHIL% 1.4 % (0.0-7.0); HEMATOCRIT 33.2 % (35.0-45.0); HEMOGLOBIN 11.1 gm/dL (12.0-16.0); LYMPHOCYTE# 2.2 X10e3 (1.0-3.5); LYMPHOCYTE% 43.6 % (17.0-45.0); MEAN CELL VOLUME 93.7 FL (83-96); MEAN CORPUSCULAR HEMOGLOBIN 31.3 PG (28-34); MEAN CORPUSCULAR HGB CONC 33.4 g/dL (30-36); MEAN PLATELET VOLUME 8.9 FL (6.5-11.5); MONOCYTE# 0.4 X10e3 (0-1.0); MONOCYTE% 7.9 % (3.0-12.0); NEUTROPHIL# 2.3 X10e3 (1.5-7.1); NEUTROPHIL% 46.5 % (40-75); PLATELET COUNT 201 X10e3 (140-420); RED BLOOD COUNT 3.54 X10e (3.90-5.30); RED CELL DISTRIBUTION WIDTH 12.9 % (11.0-15.5)
[2017-07-06 17:07] LABS: DIFF IND NO
[2017-07-06 17:23] LABS: ALBUMIN SERUM 4.4 g/dL (3.5-5.0); BILIRUBIN, DIRECT 0.1 mg/dL (0.0-0.2); BILIRUBIN,INDIRECT 0.3 mg/dL (0.0-0.9); BILIRUBIN,TOTAL 0.4 mg/dL (0.2-2.0); BUN/CREATININE RATIO 17.5; CALCIUM SERUM 9.4 mg/dL (8.4-10.2); CREATININE SERUM 0.8 mg/dL (0.6-1.4); GLOM FILT RATE Estimated 67.3 mL/min (>60); PROTEIN TOTAL SERUM 7.4 g/dL (6.0-8.3)
[2017-07-29] MEDS ORDERED: MAGNESIUM400 M1 (05:58)
[2017-07-29] MEDS ORDERED: MIRALAX17 GM (05:59)
== END 2017-07-06 17:45 | disposition home or self-care (01) ==
LOC: SED 15:56
PROVIDERS: Student in an Organized Health Care Education/Training Program
DX: G89.29 Other chronic pain (principal); R10.31 Right lower quadrant pain; I10 Essential (primary) hypertension; Z90.49 Acquired absence of other specified parts of digestive tract; Z90.710 Acquired absence of both cervix and uterus; Z98.890 Other specified postprocedural states; Z88.5 Allergy status to narcotic agent; Z88.1 Allergy status to other antibiotic agents; Z79.899 Other long term (current) drug therapy; Z79.82 Long term (current) use of aspirin
CPT/HCPCS: 36415; 80048; 80076; 81003; 82150; 83690; 85025; 96361; 96374; 96375; 99284; C9113; J1885; J2550